=== PATIENT | male | born 2000 | race American Indian/Alaskan Native ===

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

== ENCOUNTER 2021-01-08 20:03 | Emergency (ER) | payer SELFPAY ==
[2021-01-08 20:04] VITALS: BP 151/102; PULSE 95; RESP 15; TEMP 36.5; O2SAT 99; BMI 23.0
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
[2021-01-08] MEDS: Lidocaine 1% (20 ml mdv) 20 ML Vial 5 ML INFILT (22:17)
[2021-01-08 22:18] VITALS: BP 145/84; PULSE 84; RESP 16; O2SAT 98
== END 2021-01-08 22:26 | disposition home or self-care (01) ==
PROVIDERS: Emergency Provider Emergency Medicine
DX: S61.411A Laceration without foreign body of right hand, initial encounter (principal); V49.9XXA Car occupant (driver) (passenger) injured in unspecified traffic accident, initial encounter; Y93.9 Activity, unspecified; Y92.9 Unspecified place or not applicable
CPT/HCPCS: 12001; 71045; 99284

== ENCOUNTER 2021-01-10 16:40 | Emergency (ER) | payer SELFPAY ==
[2021-01-10 16:41] VITALS: BP 113/70; PULSE 76; RESP 18; TEMP 36.8; O2SAT 98; BMI 21.3
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
[2021-01-10] MEDS: Naproxen 250 MG Tablet 500 MG PO (17:17)
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
[2021-01-10 18:38] VITALS: BP 131/69; PULSE 72; RESP 15; O2SAT 98
== END 2021-01-10 18:39 | disposition home or self-care (01) ==
PROVIDERS: Emergency Provider Emergency Medicine; PCP Pediatrics
DX: S16.1XXA Strain of muscle, fascia and tendon at neck level, initial encounter (principal); V89.2XXA Person injured in unspecified motor-vehicle accident, traffic, initial encounter; Y93.9 Activity, unspecified; Y92.9 Unspecified place or not applicable; F17.210 Nicotine dependence, cigarettes, uncomplicated
CPT/HCPCS: 72040; 99283

== ENCOUNTER 2021-01-17 22:44 | Emergency (ER) | payer SELFPAY ==
[2021-01-17 22:45] VITALS: BP 138/85; PULSE 86; RESP 16; TEMP 36.7; O2SAT 97; BMI 22.8; BMI 23.0
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
== END 2021-01-17 23:07 | disposition home or self-care (01) ==
LOC: ED 23:07
PROVIDERS: Emergency Provider Emergency Medicine
DX: Z48.02 Encounter for removal of sutures (principal); F17.210 Nicotine dependence, cigarettes, uncomplicated
CPT/HCPCS: 99282

== ENCOUNTER 2023-10-12 20:49 | Emergency (ER) | payer SELFPAY ==
[2023-10-12 20:51] VITALS: BP 137/89; PULSE 121; RESP 18; TEMP 36.8; O2SAT 95; BMI 16.5
--- NOTE | 2023-10-12 21:17 | EDS_ITS ---
HPI <NICKI Daigle - Last Filed: 10/12/23 21:52> History of Present Illness Chief Complaint: Abd Pain Narrative Narrative: 23-year-old male states over the last 3 weeks about every other day he gets upper abdominal pain and vomits 3-4 times a day. It looks like yellow-green bile. Symptoms seem to flareup when he eats fast food or pizza. It occurred again today so he decided to get checked out. He has no blood in his vomit or coffee-ground emesis. He reports normal bladder and bowel movements. No melena or hematochezia. He is not on any medications. He smokes 1 pack/day of cigarettes and vapes weed. He states he has not had alcohol in about 6 months. No abdominal surgical history. PFSH <NICKI Daigle - Last Filed: 10/12/23 21:52> PFS Home Medications omeprazole 40 mg capsule,delayed release 40 mg PO DAILY 30 days #30 caps 10/12/23 [Rx Last Taken Unknown] ondansetron 4 mg disintegrating tablet 4 mg PO Q6H PRN nausea and vomiting 3 days #12 tabs 10/12/23 [Rx Last Taken Unknown] Allergy/AdvReac Type Severity Reaction Status Date / Time No Known Allergies Allergy Verified 10/12/23 20:53 Social History Smoking Status: Current every day smoker tobacco type: cigarettes ROS <NICKI Daigle - Last Filed: 10/12/23 21:52> ROS ED ROS Narrative Constitutional: Negative for fever, chills, malaise. CVS: Negative for chest pain. Respiratory: Negative for shortness of breath. GI: Positive for abdominal pain, nausea, vomiting. Negative for diarrhea, constipation, melena, hematochezia. : Negative for dysuria, hematuria or frequency. EXAM <NICKI Daigle - Last Filed: 10/12/23 21:52> Physical Exam Narrative Exam Narrative: CONST: Patient sitting in no acute distress. EYES: Normal inspection. NECK: Normal inspection. RESP: No respiratory distress, CTAB. CVS: Regular rate and rhythm, no murmur, no gallop. ABD: Soft with epigastric tenderness, no guarding or rebound, nondistended, no RUQ tenderness and negative Fowler sign, no hepatosplenomegaly. SKIN: Color normal, no rash, warm, dry, intact. EXTREMITIES: Normal appearance, no pedal edema. NEURO: Alert and answering questions appropriately. PSYCH: Normal affect. Const Vital Signs: 10/12/23 20:51 Temperature 98.2 F Temperature Source Temporal Pulse Rate 121 H Respiratory Rate 18 Blood Pressure 137/89 H Blood Pressure Mean 105 Pulse Ox 95 Oxygen Delivery Method Room Air <Dr. Jacobo Covarrubias DO - Last Filed: 10/12/23 22:11> Physical Exam Const Vital Signs: 10/12/23 20:51 Temperature 98.2 F Temperature Source Temporal Pulse Rate 121 H Respiratory Rate 18 Blood Pressure 137/89 H Blood Pressure Mean 105 Pulse Ox 95 Oxygen Delivery Method Room Air MDM <NICKI Daigle - Last Filed: 10/12/23 21:52> [facility] Narrative Medical decision making narrative: Patient has had 3 weeks of intermittent epigastric pain with nausea and vomiting. It is worsened by certain foods. He also smokes tobacco and weed. He appears well and nontoxic. Heart rate is 121 with otherwise stable vital signs. On exam he has moist mucous membranes. He has mild epigastric tenderness but no peritoneal signs. I told the patient I was going to order blood work and treatments but he states he is afraid of needles and refused an IV. I discussed I cannot rule out conditions such as pancreatitis or gallbladder problems without blood work and he expressed understanding and still does not want the IV. He requested a trial of medication here so I ordered Zofran and Pepcid but prior to the nursing staff administering this the patient states he needs to leave to go to work. His heart rate was rechecked and was around 102 bpm. I sent prescriptions for Zofran and omeprazole to his pharmacy and told him to please return for reevaluation at any time or specially if symptoms worsen. <Dr. Jacobo Covarrubias DO - Last Filed: 10/12/23 22:11> [facility] Narrative Medical decision making narrative: Patient has had 3 weeks of intermittent epigastric pain with nausea and vomiting. It is worsened by certain foods. He also smokes tobacco and weed. He appears well and nontoxic. Heart rate is 121 with otherwise stable vital signs. On exam he has moist mucous membranes. He has mild epigastric tenderness but no peritoneal signs. I told the patient I was going to order blood work and treatments but he states he is afraid of needles and refused an IV. I discussed I cannot rule out conditions such as pancreatitis or gallbladder problems without blood work and he expressed understanding and still does not want the IV. He requested a trial of medication here so I ordered Zofran and Pepcid but prior to the nursing staff administering this the patient states he needs to leave to go to work. His heart rate was rechecked and was around 102 bpm. I sent prescriptions for Zofran and omeprazole to his pharmacy and told him to please return for reevaluation at any time or specially if symptoms worsen. I have personally performed a face to face assessment of the patient and have reviewed the JOE Note. I performed a substantive portion of the visit including all aspects of the following. My mccann findings include: History is 23-year-old male presenting with 3 weeks of intermittent epigastric pain. He notes it is worsened with greasy fast foods. He is a regular user of tobacco and cannabis. Patient noted to be tachycardic in triage and he states he just finished a smoking of cigarettes and he is nervous about being here. Patient does not wish to have any laboratory testing done. Exam is on my examinations patient's heart rate is down to 102. He is well- appearing. He has mild epigastric tenderness. No right upper quadrant tenderness on my examination. It would not characterize this abdominal exam as surgical. Medical Decison Making: Patient limits what we are able to do to evaluate him. The patient states he needs to get to work tonight and needs to leave. I do not have ultrasound readily available to me at this hour of the night to look at gallbladder and pancreas. Certainly this could be reflux related. When I write for him to have Zofran and Pepcid at home. Would recommend primary care follow- up. He may also return to emergency if he has worsening concerns History & Record Review Discussion w/independent historian: Patient Discharge Plan Triage Chief Complaint: Abd Pain ED Midlevel Provider: Beckie Meyer ED Provider: Jacobo Covarrubias Dx/Rx/DC Orders Clinical Impression: Epigastric pain, Nausea and vomiting Instructions: GERD Lifestyle Changes, ED Epigastric Pain Uncertain Cause Prescriptions: New ondansetron 4 mg tablet,disintegrating 4 mg PO Q6H PRN (Reason: nausea and vomiting) 3 Days Qty: 12 1RF omeprazole 40 mg capsule,delayed release(DR/EC) 40 mg PO DAILY 30 Days Qty: 30 0RF Primary Care Provider: Care Physician,No Primary Referrals: Sara Carney MD [Med Staff - Drop Worker] - Care Physician,No Primary [Primary Care Provider] - Activity Restrictions/Additional Instructions: Zofran is taken as needed for nausea and vomiting. Omeprazole is taken every day to treat acid reflux. Avoid foods that worsen your symptoms such as pizza or fast food. Avoid spicy foods. I recommend you quit smoking as this worsens acid reflux and stomach ulcers and can make your symptoms much worse. Please follow-up with a primary care doctor. If symptoms worsen return to the ER as he would require blood work at that time which you declined today. Disposition Disposition: Home, Self Care Discharge Date/Time: 10/12/23 21:50
--- NOTE | 2023-10-12 21:55 | ED.RN ---
1950: patient left before official discharge instructions, vitals, and medications stating I need to go to work. He walked into the doctors office and said, I'm leaving Beckie Meyer took patients radial pulse and got 120 beats per minute and handed him discharge papers.
== END 2023-10-12 21:50 | disposition home or self-care (01) ==
LOC: ED 21:58
PROVIDERS: Emergency Provider Emergency Medicine; Visit Provider Emergency Medicine
DX: R10.13 Epigastric pain (principal); R11.2 Nausea with vomiting, unspecified; F17.210 Nicotine dependence, cigarettes, uncomplicated
CPT/HCPCS: 99282